=== PATIENT | female | born 1980 | race Caucasian/White ===

== ENCOUNTER 2018-08-31 10:49 | Emergency (ER) | payer OTHER ==
[~2018-08-31] VITALS: Ht 170.2 cm; Wt 80.0 kg
[2018-08-31 10:51] VITALS: BP 126/79; PULSE 67; RESP 18; Ht 170.2 cm; Wt 80.0 kg
[2018-08-31] MEDS ORDERED: HYDROCODONE/APAP (5/325) TAB PO ONE (12:30)
[2018-08-31] MEDS ORDERED: IBUPROFEN 600 MG TAB PO ONE (13:00)
[2018-08-31] MEDS ORDERED: IBUP-1542 PO (13:57)
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
== END 2018-08-31 14:24 | disposition home or self-care (01) ==
LOC: FTE 10:49
DX: M54.2 Cervicalgia (principal); M25.511 Pain in right shoulder; M25.512 Pain in left shoulder
CPT/HCPCS: 71045; 72040; 73030; 81025; Z7502; Z7610